=== PATIENT | female | born 1960 | race Caucasian/White ===

== ENCOUNTER → 2020-12-23 | Outpatient (CLI) | payer MEDICARE, MEDICAID ==
[~2020-12-23] MED LIST: ADDERALL 20 MG20 MG PO; AMBIEN 10 MG TA10 MG PO; FLEXERIL PO; LIPITOR10 MG PO; MEDROLDOSEPACK PO; MS CONTIN15 MG PO; NEURONTIN100 MG PO; OXYCODONE HCL 55 MG PO; PERCOCET 5-3251 EACH PO; SINGULAIR 10 MG10 MG PO; TOPROL XL25 MG PO; TYLENOL PO; VALACYCLOVIR1000 MG PO
== END ==
LOC: M.PC 10:49
PROVIDERS: ATTEND Anesthesiology Pain Medicine
DX: C49.20 Malignant neoplasm of connective and soft tissue of unspecified lower limb, including hip (principal); C80.1 Malignant (primary) neoplasm, unspecified; F41.9 Anxiety disorder, unspecified; G47.00 Insomnia, unspecified; M81.0 Age-related osteoporosis without current pathological fracture; M54.12 Radiculopathy, cervical region; G89.4 Chronic pain syndrome; F32.9 Major depressive disorder, single episode, unspecified; F90.9 Attention-deficit hyperactivity disorder, unspecified type; I48.91 Unspecified atrial fibrillation; I49.5 Sick sinus syndrome; E78.5 Hyperlipidemia, unspecified; I70.0 Atherosclerosis of aorta; I35.8 Other nonrheumatic aortic valve disorders; R91.8 Other nonspecific abnormal finding of lung field; Z79.899 Other long term (current) drug therapy